=== PATIENT | male | born 1955 | race Caucasian/White ===

== ENCOUNTER 2021-11-02 08:44 | Inpatient (IN) | payer MEDICARE ==
[~2021-11-02] VITALS: Ht 172.7 cm; Wt 87.7 kg
[2021-11-02] MEDS ORDERED: MUPI2OI TD (11:30)
[2021-11-02] MEDS ORDERED: MOME50SP2 NARES (11:30)
[2021-11-02] MEDS ORDERED: PARO37.55 PO (11:30)
[2021-11-02] MEDS ORDERED: DILT1TAB12 PO (11:30)
[2021-11-02] MEDS ORDERED: METO1TAB32 PO (11:30)
[2021-11-02] MEDS ORDERED: PANT40TA29 PO (11:30)
[2021-11-02] MEDS ORDERED: SIMV40TA20 PO (11:30)
[2021-11-02] MEDS ORDERED: ASPI81CH33 PO (11:31)
[2021-11-02] MEDS ORDERED: ECOT81TA5 PO (11:31)
[2021-11-02] MEDS ORDERED: NS 1,000 ML IV ONE (11:40)
[2021-11-02 12:03] LABS: BASO # 0.1 10^3/uL (0.0-0.2); BASO % 0.3 % (0.0-1.0); EOS % 0.1 % (0.0-3.0); HEMATOCRIT 45.5 % (42.0-52.0); LYMPH # 2.7 10^3/uL (1.5-5.0); LYMPH % 14.6 % (24.0-44.0); MEAN CORPUSCULAR HEMOGLOBIN 30.4 pg (27.0-33.0); MEAN CORPUSCULAR VOLUME 92.1 fl (80.0-96.0); MONO # 0.6 10^3/uL (0.0-0.8); MONO % 3.4 % (2.0-8.0); NEUTROPHILS # 15.3 10^3/uL (1.5-8.5); NEUTROPHILS % 81.2 % (36.0-66.0); PLATELET COUNT, AUTOMATED 420 10^3/uL (150-450); RED BLOOD COUNT 4.94 10^6/uL (4.30-6.10); WHITE BLOOD COUNT 18.8 10^3/uL (4.0-10.0)
[2021-11-02] MEDS ORDERED: ONDANSETRON 4MG 2ML VIAL IV ONE (12:10)
[2021-11-02 13:06] LABS: ACETAMINOPHEN LEVEL < 2.0 UG/ML (10.0-30.0); ALBUMIN 4.7 GM/DL (3.2-5.2); ALT/SGPT 27 U/L (12-78); BILIRUBIN,DIRECT < 0.1 MG/DL (0.0-0.2); BILIRUBIN,TOTAL 0.6 MG/DL (0.2-1.0); BLOOD UREA NITROGEN 33 MG/DL (7-18); CALCIUM LEVEL 9.5 MG/DL (8.8-10.2); CARBON DIOXIDE LEVEL 15 MEQ/L (21-32); CHLORIDE LEVEL 109 MEQ/L (98-107); CREATININE FOR GFR 2.69 MG/DL (0.70-1.30); GLOMERULAR FILTRATION RATE 25.4 (>49); GLUCOSE, FASTING 225 MG/DL (70-100); LIPASE 97 U/L (73-393); POTASSIUM SERUM 5.7 MEQ/L (3.5-5.1); SALICYLATE LEVEL < 1.7 MG/DL (5.0-30.0); SODIUM LEVEL 137 MEQ/L (136-145); TOTAL PROTEIN 8.6 GM/DL (6.4-8.2)
[2021-11-02] MEDS ORDERED: METOPROLOL SUCC *XL* 25MG TAB (TopROL *XL*) PO ONE (14:05)
[2021-11-02] MEDS ORDERED: MORPHINE 4 MG/ML 1ML VIAL/SYRINGE IV ONE (14:05)
[2021-11-02] MEDS ORDERED: hydrALAZINE 20MG/ML 1ML VIAL (J0360 PER 20MG) IV ONE (15:05)
[2021-11-02 16:38] LABS: CK-MB VALUE MASS 4.6 NG/ML (<3.6); MB/CK RELATIVE INDEX 3.83 (< OR =4)
[2021-11-02] MEDS ORDERED: PANTOPRAZOLE 40MG VIAL IV ONE (16:55)
[2021-11-02 19:45] LABS: VENOUS BASE EXCESS -13.1 (-2.0-2.0); VENOUS HCO3 13.9 MEQ/L (23.0-27.0); VENOUS O2 SATURATION 86.3 % (60.0-80.0); VENOUS PARTIAL PRESSURE CO2 35.9 mmHg (38.0-50.0); VENOUS PARTIAL PRESSURE O2 52.2 mmHg (30.0-50.0); VENOUS PH 7.206 UNITS (7.330-7.430); VENOUS STANDARD HCO3 14.3 MEQ/L
[2021-11-02] MEDS ORDERED: diltiaZEM 125 MG in NS 100 ML IV SCH ×2 (20:00→22:09)
[2021-11-02] MEDS ORDERED: PATIROMER SORBITEX CALCIUM 8.4 GM POWDER PACKET (VELTASSA) PO ONE (20:00)
[2021-11-02 20:04] LABS: INR 1.08; PROTHROMBIN TIME 14.4 SECONDS (12.7-14.5)
[2021-11-02 20:27] LABS: CALCIUM LEVEL 9.3 MG/DL (8.8-10.2); CREATININE FOR GFR 2.31 MG/DL (0.70-1.30); GLOMERULAR FILTRATION RATE 30.3 (>49); POTASSIUM SERUM 5.1 MEQ/L (3.5-5.1)
[2021-11-02] MEDS: LR 1,000 ML IV SCH (20:34)
[2021-11-02 22:55] VITALS: BP 164/92
[2021-11-03] VITALS (15 sets, daily range): BP systolic 77–186; BP diastolic 46–112
[2021-11-03 02:08] LABS: CALCIUM LEVEL 9.5 MG/DL (8.8-10.2); CREATININE FOR GFR 2.04 MG/DL (0.70-1.30); POTASSIUM SERUM 4.8 MEQ/L (3.5-5.1)
[2021-11-03] MEDS: LR 1,000 ML IV SCH (04:00)
[2021-11-03] MEDS ORDERED: ONDANSETRON 4MG 2ML VIAL IV ONE (04:45)
[2021-11-03] MEDS ORDERED: hydrALAZINE 20MG/ML 1ML VIAL (J0360 PER 20MG) IV STA (05:09)
[2021-11-03 05:39] LABS: HEMATOCRIT 40.1 % (42.0-52.0); HEMOGLOBIN 13.5 g/dl (13.5-17.5); MEAN CORPUSCULAR HEMOGLOBIN 30.3 pg (27.0-33.0); MEAN CORPUSCULAR HGB CONC 33.7 g/dl (32.0-36.5); MEAN CORPUSCULAR VOLUME 89.9 fl (80.0-96.0); PLATELET COUNT, AUTOMATED 420 10^3/uL (150-450); RED BLOOD COUNT 4.46 10^6/uL (4.30-6.10); WHITE BLOOD COUNT 15.1 10^3/uL (4.0-10.0)
[2021-11-03 05:40] LABS: VENOUS BASE EXCESS -8.8 (-2.0-2.0); VENOUS HCO3 17.1 MEQ/L (23.0-27.0); VENOUS PARTIAL PRESSURE CO2 37.1 mmHg (38.0-50.0); VENOUS PARTIAL PRESSURE O2 49.7 mmHg (30.0-50.0); VENOUS PH 7.282 UNITS (7.330-7.430); VENOUS STANDARD HCO3 17.3 MEQ/L; VENOUS TOTAL CO2 18.3 MEQ/L (24.0-28.0)
[2021-11-03 06:31] LABS: ALBUMIN 4.2 GM/DL (3.2-5.2); ALT/SGPT 21 U/L (12-78); BILIRUBIN,TOTAL 0.4 MG/DL (0.2-1.0); BLOOD UREA NITROGEN 27 MG/DL (7-18); CALCIUM LEVEL 9.7 MG/DL (8.8-10.2); CARBON DIOXIDE LEVEL 19 MEQ/L (21-32); CHLORIDE LEVEL 107 MEQ/L (98-107); CREATININE FOR GFR 1.79 MG/DL (0.70-1.30); GLOMERULAR FILTRATION RATE 40.6 (>49); GLUCOSE, FASTING 148 MG/DL (70-100); POTASSIUM SERUM 4.5 MEQ/L (3.5-5.1); SALICYLATE LEVEL < 1.7 MG/DL (5.0-30.0); SODIUM LEVEL 136 MEQ/L (136-145); TOTAL PROTEIN 7.7 GM/DL (6.4-8.2)
[2021-11-03] MEDS ORDERED: PROCHLORPERAZINE 10MG 2ML VIAL IV PRN (07:20)
[2021-11-03] MEDS ORDERED: diltiaZEM 125 MG in NS 100 ML IV SCH ×3 (08:00→21:00)
[2021-11-03] MEDS ORDERED: LORazepam 2 MG/ML VIAL IV STA (09:23)
[2021-11-03] MEDS ORDERED: LORazepam 2 MG TAB PO STA (10:28)
[2021-11-03] MEDS: PANTOPRAZOLE 40MG VIAL IV SCH ×2 (10:56→22:09)
[2021-11-03] MEDS: diltiaZEM 125 MG in NS 100 ML IV SCH ×2 (11:27→22:05)
[2021-11-03] MEDS ORDERED: ACETAMINOPHEN TAB 650MG DOSE (2X325MG) PO PRN (11:55)
[2021-11-03] MEDS: SUCRALFATE 1 GM TAB PO SCH ×3 (13:00→20:50)
[2021-11-03] MEDS ORDERED: METOPROLOL 5 MG/5 ML VIAL IV STA ×2 (14:20→16:37)
[2021-11-03] MEDS ORDERED: AMIODARONE HCL 150 MG in IV 1 EA IV STA (14:28)
[2021-11-03] MEDS ORDERED: diazePAM 5MG TABLET PO ONE (14:45)
[2021-11-03] MEDS ORDERED: NS 250 ML IV ONE ×2 (19:10→21:30)
[2021-11-04 04:34] VITALS: BP 131/91
[2021-11-04 08:14] LABS: BASO # 0.1 10^3/uL (0.0-0.2); BASO % 0.3 % (0.0-1.0); EOS % 0.2 % (0.0-3.0); HEMATOCRIT 41.7 % (42.0-52.0); HEMOGLOBIN 13.9 g/dl (13.5-17.5); LYMPH # 5.1 10^3/uL (1.5-5.0); LYMPH % 30.8 % (24.0-44.0); MEAN CORPUSCULAR HEMOGLOBIN 30.2 pg (27.0-33.0); MEAN CORPUSCULAR HGB CONC 33.3 g/dl (32.0-36.5); MEAN CORPUSCULAR VOLUME 90.7 fl (80.0-96.0); MONO % 6.2 % (2.0-8.0); NEUTROPHILS # 10.3 10^3/uL (1.5-8.5); NEUTROPHILS % 62.1 % (36.0-66.0); PLATELET COUNT, AUTOMATED 421 10^3/uL (150-450); WHITE BLOOD COUNT 16.5 10^3/uL (4.0-10.0)
[2021-11-04 08:30] VITALS: BP 189/106
[2021-11-04 08:57] LABS: CALCIUM LEVEL 9.9 MG/DL (8.8-10.2); CREATININE FOR GFR 1.53 MG/DL (0.70-1.30); GLOMERULAR FILTRATION RATE 48.7 (>49); POTASSIUM SERUM 4.1 MEQ/L (3.5-5.1)
[2021-11-04] MEDS ORDERED: BACTDSTA PO (09:03)
[2021-11-04] MEDS ORDERED: HOME MED LIST COMPLETE! XX SCH (09:05)
[2021-11-04] MEDS: SUCRALFATE 1 GM TAB PO SCH ×4 (09:32→20:48)
[2021-11-04 09:47] LABS: MAGNESIUM LEVEL 2.1 MG/DL (1.8-2.4)
[2021-11-04] MEDS ORDERED: diazePAM 5MG TABLET PO ONE (10:00)
[2021-11-04] MEDS: PANTOPRAZOLE 40MG VIAL IV SCH (11:15)
[2021-11-04] MEDS: METOPROLOL TART 50 MG TAB PO SCH ×2 (11:15→20:47)
[2021-11-04 11:44] VITALS: BP 162/90
[2021-11-04 12:40] VITALS: BP 161/96
[2021-11-04] MEDS: diltiaZEM 125 MG in NS 100 ML IV SCH ×3 (14:44→22:52)
[2021-11-04 16:02] VITALS: BP 145/91
[2021-11-04] MEDS ORDERED: diltiaZEM 125 MG in NS 100 ML IV SCH (16:24)
[2021-11-04 20:00] VITALS: BP 120/73
[2021-11-05] MEDS: PANTOPRAZOLE 40MG VIAL IV SCH ×2 (00:49→12:06)
[2021-11-05] MEDS: diltiaZEM 125 MG in NS 100 ML IV SCH (01:21)
[2021-11-05 04:00] VITALS: BP 99/66
[2021-11-05 06:16] LABS: BASO % 0.1 % (0.0-1.0); EOS % 0.3 % (0.0-3.0); HEMATOCRIT 41.6 % (42.0-52.0); HEMOGLOBIN 13.7 g/dl (13.5-17.5); LYMPH # 3.3 10^3/uL (1.5-5.0); LYMPH % 29.8 % (24.0-44.0); MEAN CORPUSCULAR HEMOGLOBIN 29.8 pg (27.0-33.0); MEAN CORPUSCULAR HGB CONC 32.9 g/dl (32.0-36.5); MEAN CORPUSCULAR VOLUME 90.4 fl (80.0-96.0); MONO # 0.9 10^3/uL (0.0-0.8); NEUTROPHILS # 6.8 10^3/uL (1.5-8.5); NEUTROPHILS % 61.4 % (36.0-66.0); PLATELET COUNT, AUTOMATED 334 10^3/uL (150-450); WHITE BLOOD COUNT 11.1 10^3/uL (4.0-10.0)
[2021-11-05 06:43] LABS: CALCIUM LEVEL 9.3 MG/DL (8.8-10.2); CREATININE FOR GFR 1.44 MG/DL (0.70-1.30); GLOMERULAR FILTRATION RATE 52.3 (>49); POTASSIUM SERUM 3.3 MEQ/L (3.5-5.1)
[2021-11-05 08:00] VITALS: BP 109/67
[2021-11-05] MEDS: KCL 10MEQ/100ML SWI (KRUN) 10 MEQ in IV 1 EA IV SCH ×3 (08:14→09:58)
[2021-11-05] MEDS: METOPROLOL TART 50 MG TAB PO SCH (08:15)
[2021-11-05] MEDS: SUCRALFATE 1 GM TAB PO SCH ×2 (08:15→12:40)
[2021-11-05] MEDS ORDERED: POTASSIUM CHLORIDE 10MEQ SR TABLET PO SCH (09:00)
[2021-11-05] MEDS ORDERED: PANT40TA29 PO (09:46)
[2021-11-05] MEDS ORDERED: SUCR1TA PO (09:46)
[2021-11-05] MEDS ORDERED: LOPR1TAB6 PO (09:46)
[2021-11-05] MEDS ORDERED: DILT60TA PO (09:46)
[2021-11-05] MEDS ORDERED: POTASSIUM CHLORIDE 10MEQ SR TABLET PO ONE (10:05)
[2021-11-05 12:00] VITALS: BP 93/61
== END 2021-11-05 14:11 | disposition home or self-care (01) | DRG 917 ==
LOC: M ED 08:44 → EDBD 08:44 → M ED INP 17:58 → M PCU 22:07
PROVIDERS: ADMIT Student in an Organized Health Care Education/Training Program; ATTEND Student in an Organized Health Care Education/Training Program
DX: T39.391A Poisoning by other nonsteroidal anti-inflammatory drugs [NSAID], accidental (unintentional), initial encounter (principal); K22.6 Gastro-esophageal laceration-hemorrhage syndrome; N17.9 Acute kidney failure, unspecified; K82.1 Hydrops of gallbladder; E87.2 Acidosis; K52.839 Microscopic colitis, unspecified; N18.30 Chronic kidney disease, stage 3 unspecified; E78.5 Hyperlipidemia, unspecified; R11.2 Nausea with vomiting, unspecified; I12.9 Hypertensive chronic kidney disease with stage 1 through stage 4 chronic kidney disease, or unspecified chronic kidney disease; K57.90 Diverticulosis of intestine, part unspecified, without perforation or abscess without bleeding; I48.91 Unspecified atrial fibrillation; E87.5 Hyperkalemia; R10.13 Epigastric pain; F41.9 Anxiety disorder, unspecified; K08.89 Other specified disorders of teeth and supporting structures